=== PATIENT | female | born 2000 | race Two or more races ===

== ENCOUNTER 2025-11-05 10:56 | Emergency (ER) | payer BC, SELFPAY ==
--- NOTE | ~2025-11-05 | XR_ITS ---
CLINICAL HISTORY: l sided chest pain Two views of the chest. COMPARISON: None provided. FINDINGS: Normal heart and mediastinal contours. No consolidation. No pleural effusion or pneumothorax. No acute fracture. IMPRESSION: 1. No consolidation. This document has been electronically signed by: Jeremy Brady MD on 11/05/2025 13:17:11
--- NOTE | 2025-11-05 11:01 | ECG_ITS ---
Test Reason : CP Blood Pressure : */* mmHG Vent. Rate : 85 BPM Atrial Rate : 85 BPM P-R Int : 136 ms QRS Dur : 70 ms QT Int : 356 ms P-R-T Axes : 54 46 49 degrees QTcB Int : 423 ms Normal sinus rhythm Nonspecific ST abnormality Borderline ECG No previous ECGs available Referred By: Generic ED Physician Electronically Signed By: SHOBHA KABA
[2025-11-05 11:08] VITALS: BP 108/71; PULSE 95; RESP 18; TEMP 36.6; O2SAT 99; BMI 22.6
--- NOTE | 2025-11-05 11:08 | ED.CHESTPAIN ---
HPI - Chest Pain General Chief Complaint: Chest Pain Stated Complaint: chest pain Time Seen by Provider: 11/05/25 11:45 Source: patient and RN notes reviewed Mode of arrival: ambulatory Limitations: no limitations History of Present Illness ED Provider: Danae Calzada PA-C HPI narrative: This is a 24-year-old female who presents emergency department with concerns of acute onset of chest pain which occurred while she was getting ready for the day. Chest pain sharp in nature, has improved since her arrival. Denies history of similar symptoms in the past. Denies any recent travel, surgery, hospitalizations. She is not on control. No significant cardiac family medical history. She has not been ill recently. No fevers, chills, shortness of breath, palpitations, abdominal pain, nausea, vomiting, or diarrhea. No other complaints or concerns at this time Related Data Allergies Allergy/AdvReac Type Severity Reaction Status Date / Time No Known Allergies Allergy Verified 11/05/25 11:10 Review of Systems Review of Systems: Constitutional : No Fever, No Chills ENT/Mouth : No sore throat, No Rhinorrhea Eyes: No Eye Pain, No Swelling, No Redness Cardiovascular : No Chest Pain, No SOB Respiratory : No Cough, No Sputum Gastrointestinal : No Nausea, No Vomiting, No Diarrhea, No abdominal Pain Genitourinary : No Dysuria, No Hematuria Musculoskeletal : No joint pain, No Myalgias, No Joint Swelling Skin : No Skin Lesions Neuro : No Weakness, No Numbness, No Headache All other systems reviewed and are negative Yes all other systems are reviewed and are negative Constitutional: Constitutional: Reports as per [facility] Social History Social History Smoked in Last 30 Days: No Use of substances other than those prescribed or required for medical reasons: No Advance Directives: No Advance Directives Information Provided: No Do you have a plan to hurt others: No Plan Patient : No Physical Exam Vital Signs: Vital Signs: Last Vital Signs Temp 98.2 F 11/05/25 15:51 Pulse 84 11/05/25 15:51 Resp 14 11/05/25 15:51 BP 118/64 11/05/25 15:51 Pulse Ox 100 11/05/25 15:51 O2 Del Method Room Air 11/05/25 15:51 BMI result Body Mass Index 22.6 Const: General: cooperative, comfortable and no acute distress Orientation/consciousness: patient oriented x3 Limitations: no limitations HEENT: Head: Yes normal to inspection, Yes normocephalic and Yes atraumatic Ears: hearing grossly normal bilaterally General nose exam: Normal external nose present Face and sinus: Yes normal facial exam Mouth: Normal oral and palatal mucosa present, oropharynx normal and moist mucous membranes Throat: Yes posterior oropharynx normal Eyes: General: appearance normal, both eyes and all related structures Eyelids: Yes eyelids normal Conjunctivae: conjunctivae normal Sclerae: sclerae normal Pupils: Equal, round and reactive pupils present EOM: EOMs intact bilaterally Neck: Neck: Yes normal visual inspection, Yes full ROM and Yes no lymphadenopathy Lymphatic: no lymphadenopathy noted Chest: Chest palpation & inspection: normal inspection of the chest Resp: Effort & Inspection: normal respiratory effort and able to speak in complete sentences Auscultation: clear to auscultation bilaterally, no crackles, no rales, no rhonchi and no wheezes Cardio: Rate: regular rate Rhythm: regular rhythm Heart sounds: S1 normal heart sound present and S2 normal heart sound present GI: Inspection: Yes normal to inspection Skin: General skin exam: no rashes or lesions noted Trauma: no lacerations or abrasions Wounds: no wounds Neuro: General: patient oriented x3 and moves all extremities Cranial nerves: Yes Equal, round and reactive pupils present Extrem: General: Yes normal to inspection Right upper extremity: normal to inspection Left upper extremity: normal to inspection Right lower extremity: normal to inspection Left lower extremity: normal to inspection Course Course Course Narrative: This is a Rapid Medical Examination (RME) performed by Frank Lopez PA-C in triage. Full HPI, ROS, assessment and treatment plan per primary provider in the Main ED. Hx: 24 yo F here for eval of L sided chest pain and shortness of breath which began while getting ready for work this am. pain is still present, but subsiding. Plan: ekg, labs, cxr Medical Decision Making Medical Decision Making [facility] Narrative: this is a 24-year-old female who presents emergency department with concerns of acute onset of chest pain which occurred this morning. On arrival, vital signs within normal limits. She is speaking full sentences under no acute distress. Labs were obtained, no leukocytosis, stable H&H, chemistry within normal limits. D-dimer is negative. Troponin x2 negative. EKG nonischemic. Chest x-ray revealing no acute findings. Discussed findings with patient, unclear what caused her to have the symptoms today however workup today reassuring. Given strict return precautions, she understands and agrees with plan. Patient stable for discharge. Differential Diagnosis Differential Diagnoses: The differential diagnosis associated with the presentation includes ACS, chest wall strain, pneumothorax, PE - unlikely Lab Data [facility] Lab Attestation statement: I reviewed the patient's lab results. see [facility] 11/05/25 11:16 11/05/25 11:16 Labs: Lab Results 11/05/25 11/05/25 Range/Units 11:16 13:45 WBC 9.9 (4.8-10.8) X10*3/uL RBC 4.09 L (4.20-5.50) X10*6/uL Hgb 12.5 (12.0-16.0) g/dl Hct 38.2 (37.0-47.0) % MCV 93.4 (80.0-98.0) fL MCH 30.6 (27.0-33.0) pg MCHC 32.7 (31.0-35.0) g/dl RDW 12.2 (11.0-16.0) % Plt Count 273 (160-400) X10*3/uL MPV 9.4 (9.4-12.3) fL Immature Gran % (Auto) 0.3 (0.0-0.4) % Neut % (Auto) 70.7 (45-73) % Lymph % (Auto) 20.0 (20-40) % [place] % (Auto) 6.4 (2-11) % Eos % (Auto) 2.2 (0-4) % Baso % (Auto) 0.4 (0-2) % Lymph # (Auto) 2.0 (1.2-4.9) X10*3/uL [place] # (Auto) 0.6 (0.1-1.2) X10*3/uL Eos # (Auto) 0.2 (0.0-0.4) X10*3/uL Baso # (Auto) 0.0 (0.0-0.2) X10*3/uL Abs Immat Gran (auto) 0.03 (0.00-0.03) X10*3/uL Absolute Neuts (auto) 7.0 (2.0-8.3) x10*3/uL Absolute Nucleated RBC 0.000 (0.0-0.012) X10*3/uL Nucleated RBC % (auto) 0.0 (0.0-0.2) /100WBC D-Dimer High Sensitivty < 150 NG/ML Sodium 141 (135-145) mmol/L Potassium 3.7 (3.3-5.1) mmol/L Chloride 109 H (96-108) mmol/L Carbon Dioxide 26 (22-29) mmol/L Anion Gap 10 L (12-20) BUN 10 (9-16) mg/dL Creatinine 0.61 (0.5-1.4) mg/dL Estim Creat Clear Calc 130.8 Estimated GFR > 60 Random Glucose 83 (60-115) mg/dL Calcium 9.2 (8.4-10.2) mg/dL Magnesium 2.0 (1.6-2.6) mg/dL Total Bilirubin 0.4 (0.0-1.0) mg/dL AST 19 (5-31) U/L ALT 18 (0-31) U/L Alkaline Phosphatase 69 (39-117) U/L Troponin I High Sens < 2.7 < 2.7 (<3.5-17.0) ng/L Total Protein 7.8 (6.5-8.0) g/dL Albumin 4.5 (3.5-5.0) g/dL Independent Interpretation I performed an independent interpretation of an: EKG Interpretation: EKG NSR at a rate of 85BPM, QT/QTC 356/423. No STEMI. Radiology Impression Discussion of test interpretation with radiology: I have reviewed the radiologist's reading. Radiologist Impression: [address] [id number] XRay Report Signed Patient: Kacie Harrington MR#: [id number] : 2000 Acct:[id number] Age/Sex: 24 / F ADM Date: 11/05/25 Loc: .ED Attending Dr: Ordering Physician: Yesenia Lopez Date of Service: 11/05/25 Procedure(s): XR chest 2V Accession Number(s): [id number] cc: Physician,None ; Yesenia Lopez~ Reason for Exam: l sided chest pain CLINICAL HISTORY: l sided chest pain Two views of the chest. COMPARISON: None provided. FINDINGS: Normal heart and mediastinal contours. No consolidation. No pleural effusion or pneumothorax. No acute fracture. IMPRESSION: 1. No consolidation. This document has been electronically signed by: Jeremy Brady MD on 11/05/2025 13:17:11 Dictated By: Jeremy Brady MD Discharge Plan Discharge Clinical Impression: Chest pain Patient Disposition: Home, Self-Care Instructions: Chest Pain (ED) Additional Instructions: You were seen in the emergency department and your workup today was reassuring. Please follow-up with your primary care physician. Rest, drink plenty of fluids and alternate between ibuprofen and Tylenol as needed for pain. We measured a blood test called a troponin test. We repeated this after 2 hours, and you had no change. Troponin is a protein that is released in the blood that helps diagnosed heart attacks or muscle damage, and your blood test today did not reveal any abnormalities. Your chest x-ray was normal. Your other blood work was reassuring. If any new or worsening symptoms occur including but not limited to severe chest pain, shortness of breath, please seek emergent care. Referrals: [facility] [facility] [place] [Provider Group, Internal Medicine] [facility], [place] [Provider Group, Internal Medicine] [facility], Pipe Garzon [Provider Group, Primary Care] Stand Alone Forms: Work/School Release Interventions: ED Discharge Assessment Last Done: 11/05/25 15:51 Discharge Date/Time: 11/05/25 15:52 Print Language: Upper Sorbian
[2025-11-05 11:23] LABS: MANUAL DIFF FLAG NO
[2025-11-05 11:28] LABS: Hematocrit 38.2 % (37.0-47.0); Hemoglobin 12.5 g/dl (12.0-16.0); Imm Gran Abs Auto 0.03 X10*3/uL (0.00-0.03); Imm Gran Pct Auto 0.3 % (0.0-0.4); Lymphocytes Absolute Auto 2.0 X10*3/uL (1.2-4.9); Mean Corpuscular HGB Conc 32.7 g/dl (31.0-35.0); Mean Corpuscular Hemoglobin 30.6 pg (27.0-33.0); Mean Corpuscular Volume 93.4 fL (80.0-98.0); NRBC Abs Auto 0.000 X10*3/uL (0.0-0.012); NRBC Pct Auto 0.0 /100WBC (0.0-0.2); Platelet Count 273 X10*3/uL (160-400); Red Blood Count 4.09 X10*6/uL (4.20-5.50); White Blood Count 9.9 X10*3/uL (4.8-10.8)
[2025-11-05 11:46] LABS: Alanine Aminotransferase 18 U/L (0-31); Albumin Level 4.5 g/dL (3.5-5.0); Alkaline Phosphatase 69 U/L (39-117); Anion Gap 10 (12-20); Aspartate Amino Transferase 19 U/L (5-31); Blood Urea Nitrogen 10 mg/dL (9-16); Calcium 9.2 mg/dL (8.4-10.2); Carbon Dioxide 26 mmol/L (22-29); Chloride 109 mmol/L (96-108); Creatinine Clr Calc Pharmacy 130.8; Estimated Glomerular Filt Rate > 60; Magnesium 2.0 mg/dL (1.6-2.6); Potassium 3.7 mmol/L (3.3-5.1); Sodium 141 mmol/L (135-145); Total Protein 7.8 g/dL (6.5-8.0)
[2025-11-05 11:53] VITALS: BP 114/71; PULSE 74; RESP 16; TEMP 36.8; O2SAT 100
[2025-11-05 11:55] LABS: Troponin-I High Sensitivity < 2.7 ng/L (<3.5-17.0)
[2025-11-05 13:09] VITALS: BP 105/64; PULSE 84; RESP 14; TEMP 36.5; O2SAT 96
[2025-11-05 13:58] LABS: D Dimer High Sensitivity < 150 NG/ML
[2025-11-05 14:02] VITALS: BP 97/56; PULSE 74; RESP 15; TEMP 36.8; O2SAT 100
[2025-11-05 14:10] LABS: Troponin-I High Sensitivity < 2.7 ng/L (<3.5-17.0)
--- NOTE | 2025-11-05 14:24 | PC.NURSE ---
Patient presents to ED c/o non radianting chest pain Pain started this AM but has slowly been resolving Pain rated 5/10 at this time CXR = no findings EKG = NSR trop <2.7 , awaiting repeat trop
[2025-11-05 15:51] VITALS: BP 118/64; PULSE 84; RESP 14; TEMP 36.8; O2SAT 100
== END 2025-11-05 15:52 | disposition home or self-care (01) ==
PROVIDERS: Physician Assistant Medical; Emergency Provider Emergency Medicine
DX: R07.9 Chest pain, unspecified (principal)
CPT/HCPCS: 36415; 71046; 80053; 83735; 84484; 85025; 85379; 93005; 99283; 99285

== ENCOUNTER → 2025-11-05 11:01 | Outpatient (BNV) | payer BC, SELFPAY | PROVIDERS: Emergency Provider Emergency Medicine; Visit Provider Internal Medicine | DX: R07.9 Chest pain, unspecified (principal) | CPT/HCPCS: 93010 ==

== ENCOUNTER → 2025-11-05 11:10 | Outpatient (BNV) | payer BC, SELFPAY | PROVIDERS: Emergency Provider Emergency Medicine; Visit Provider Radiology Diagnostic Radiology | DX: R07.89 Other chest pain (principal) | CPT/HCPCS: 71046 ==